=== PATIENT | male | born 2000 | race Caucasian/White ===

== ENCOUNTER 2023-06-04 18:44 | Emergency (ER) | payer OTHER, MEDICAID, SELFPAY ==
[2023-06-04 18:54] VITALS: BP 126/64; PULSE 75; RESP 14; TEMP 36.6; O2SAT 100
[2023-06-04 20:40] VITALS: BP 105/59; PULSE 88; RESP 14; TEMP 36.7; O2SAT 100
--- NOTE | 2023-06-04 22:58 | PC.NURSE ---
no answer for room 2220.
--- NOTE | 2023-06-04 22:58 | PC.NURSE ---
no answer for VS at 7622
--- NOTE | 2023-06-04 23:16 | PC.NURSE ---
no answer x3 at this time.
== END 2023-06-04 22:20 | disposition left against medical advice (07) ==
LOC: ANHED 23:26
DX: M79.659 Pain in unspecified thigh (principal)
CPT/HCPCS: 99199

== ENCOUNTER 2023-06-13 20:20 | Emergency (ER) | payer OTHER, MEDICAID, SELFPAY ==
--- NOTE | ~2023-06-13 | XR_ITS ---
Clinical Indication: Shortness of breath, cough PA and lateral views of the chest: Comparison: 05/10/2018 Findings: The lungs are clear, without evidence of focal consolidation or pleural effusion. Cardiome diastinal silhouette is within normal limits. Bones and soft tissues are unremarkable. Impression: Normal chest. Reviewed, dictated and finalized at location . Impression: Normal chest.
[2023-06-13 20:46] VITALS: BP 128/68; PULSE 70; RESP 15; TEMP 36.4; O2SAT 100
[2023-06-13 23:44] VITALS: BP 94/50; PULSE 70; RESP 14; TEMP 36.4; O2SAT 100
[2023-06-14 01:11] VITALS: O2SAT 99
[2023-06-14 03:58] LABS: Basophils Absolute Auto 0.1 K/mm3 (0.0-0.1); Basophils Percent Auto 0.7 % (0.2-1.2); Eosinophils Absolute Auto 0.3 K/mm3 (0-0.3); Hematocrit 41.5 % (42.0-52.0); Hemoglobin 13.4 g/dL (14.0-18.0); Immature Granulocyte Absolute 0.01 K/mm3 (0.00-0.031); Immature Granulocyte Percent A 0.1 % (0-0.5); Lymphocytes Absolute Auto 2.45 K/mm3 (0.9-3.2); Lymphocytes Percent Auto 29.7 % (18.3-44.2); Mean Corpuscular HGB Conc 32.3 g/dl (32-36); Mean Corpuscular Hemoglobin 28.8 pg (26-34); Mean Corpuscular Volume 89.1 fl (80-100); Mean Platelet Volume 9.6 fl (7.4-10.4); Monocytes Absolute Auto 0.7 K/mm3 (0.1-0.6); Monocytes Percent Auto 7.9 % (2.6-8.5); Neutrophils Absolute Auto 4.8 K/mm3 (1.3-6.7); Neutrophils Percent Auto 57.6 % (45.5-73.1); Platelet Count Result 215 k/mm3 (150-375); Red Blood Count 4.66 M/mm3 (4.6-6.20); Red Cell Distribution Width 13.2 % (11.5-14.5); White Blood Count 8.3 K/mm3 (4.5-10.0)
[2023-06-14 04:13] LABS: Anion Gap 4 mmol/L (8-16); Blood Urea Nitrogen 9 mg/dL (9-20); Calcium 8.8 mg/dL (8.4-10.2); Carbon Dioxide 30 mmol/L (22-30); Chloride 104 mmol/L (98-107); Estimated CRCL calculation 126 ml/min; Estimated Glomerular Filt Rate > 60; Glucose 91 mg/dL (65-110); Potassium 3.6 mmol/L (3.4-5.0); Sodium 138 mmol/L (137-145)
[2023-06-14 04:31] LABS: D Dimer < 0.27 ug/mL (<0.48)
--- NOTE | 2023-06-14 04:50 | ED.GENADULT ---
HPI - General Adult General Chief complaint: Shortness of Breath/Dyspnea Stated complaint: cough with SOB, blood in mucas Time Seen by Provider: 06/14/23 03:29 History of Present Illness HPI narrative: This is a 23-year-old male presenting ED with chief complaint of cough x1 month. Patient says that over the last week you started to have streaks of blood in his mucus. He does have some chest discomfort when he coughs but no true chest pain. Denies fever chills nausea vomiting or diarrhea. No history of lower extremity edema, recent surgeries cancers or blood clots. Related Data Allergies Allergy/AdvReac Type Severity Reaction Status Date / Time No Known Allergies Allergy Mild Verified 06/14/23 01:09 [facility] Past Medical History Medical History (Updated 06/14/23 @ 04:53 by Maldonado Harvey MD) Anxiety Panic attack Surgical History Surgical History No significant past surgical history Social History Social History Alcohol intake: never Substance use: current Substance use type: marijuana Other substance usage details: Daily marijuana use Gender identity (if verbalized by the patient): Male Exam Narrative: APPEARANCE: No apparent distress. malodorous Head: atraumatic. EYES: EOMI, NOSE: Atraumatic NECK: Trachea midline RESPIRATORY: No increased rate of breathing , clear to auscultation CARDIOVASCULAR: RRR, no peripheral edema ABDOMINAL: Non-distended MUSCULOSKELETAl: No obvious deformities NEURO: Alert. Moving 4/4 extremities SKIN:: Warm, dry. Normal color PSYCHIATRIC: Normal affect Course Vital Signs Vital signs: Vital Signs Temperature 97.6 F 06/13/23 20:46 Pulse Rate 70 06/13/23 20:46 Respiratory Rate 15 06/13/23 20:46 Blood Pressure 128/68 06/13/23 20:46 Pulse Oximetry 100 06/13/23 20:46 Oxygen Delivery Room Air 06/13/23 20:46 Temperature 97.5 F L 06/13/23 23:44 Pulse Rate 70 06/13/23 23:44 Respiratory Rate 14 06/13/23 23:44 Blood Pressure 94/50 L 06/13/23 23:44 Pulse Oximetry 99 06/14/23 01:11 Oxygen Delivery Room Air 06/14/23 01:11 Medical Decision Making MDM Narrative Medical decision making narrative: -Course: 23-year-old male presenting with cough x1 month with streaks of blood in his mucus. Lab work including a D-dimer were negative. Chest x-ray unremarkable. Trace of blood likely from bronchitis. Patient be discharged with primary care follow-up. -DDX includes but is not limited to: Pulmonary embolism, pneumonia, bronchitis, viral syndrome -Co-morbidities complicating care: anxiety -Social determinants of health: works at [employer] -Independent interpretation of studies: laboratory studies normal. D-dimer undetectable. Chest x-ray unremarkable. -Shared decision making / Disposition: Discharged Vital Signs Vital Signs: Vital Signs Temperature 97.6 F 06/13/23 20:46 Pulse Rate 70 06/13/23 20:46 Respiratory Rate 15 06/13/23 20:46 Blood Pressure 128/68 06/13/23 20:46 Pulse Oximetry 100 06/13/23 20:46 Oxygen Delivery Room Air 06/13/23 20:46 Temperature 97.5 F L 06/13/23 23:44 Pulse Rate 70 06/13/23 23:44 Respiratory Rate 14 06/13/23 23:44 Blood Pressure 94/50 L 06/13/23 23:44 Pulse Oximetry 99 06/14/23 01:11 Oxygen Delivery Room Air 06/14/23 01:11 Lab Data 06/14/23 03:53 06/14/23 03:53 Labs: Lab Results 06/14/23 Range/Units 03:53 WBC 8.3 (4.5-10.0) K/mm3 RBC 4.66 (4.6-6.20) M/mm3 Hgb 13.4 L (14.0-18.0) g/dL Hct 41.5 L (42.0-52.0) % MCV 89.1 (80-100) fl MCH 28.8 (26-34) pg MCHC 32.3 (32-36) g/dl RDW 13.2 (11.5-14.5) % Plt Count 215 (150-375) k/mm3 MPV 9.6 (7.4-10.4) fl Immature Gran % (Auto) 0.1 (0-0.5) % Neut % (Auto) 57.6 (45.5-73.1) % Lymph % (Auto) 29.7 (18.3-44.2) % [place] % (Auto) 7.9
[2023-06-14 05:13] VITALS: BP 113/67; PULSE 71; RESP 16; O2SAT 100
== END 2023-06-14 05:15 | disposition home or self-care (01) ==
PROVIDERS: Emergency Provider Emergency Medicine; PCP Emergency Medicine
DX: J40 Bronchitis, not specified as acute or chronic (principal); F41.0 Panic disorder [episodic paroxysmal anxiety]
CPT/HCPCS: 36415; 71046; 80048; 85025; 85380; 99283

== ENCOUNTER 2024-01-23 19:06 | Emergency (ER) | payer OTHER, SELFPAY ==
[2024-01-23 19:16] VITALS: BP 106/64; PULSE 83; RESP 18; TEMP 36.8; O2SAT 100
--- NOTE | 2024-01-23 19:24 | ED.NAVMDI ---
HPI - Nausea/Vomiting/Diarrhea General Chief complaint: Nausea/Vomiting/Diarrhea Stated complaint: Nausea and diarrhea Time Seen by Provider: 01/23/24 19:24 Source: patient, RN notes reviewed and old records reviewed Mode of arrival: ambulatory Limitations: no limitations History of Present Illness HPI Narrative: 24-year-old male presents to the [facility] with nausea and diarrhea since this morning. No treatment prior to arrival. States he able to drink fluids. Denies any significant abdominal pain. No pain with palpation. States he only vomited 1 time this morning when he woke up. States he called in sick to work this morning and needs a work note. Related Data Allergies Allergy/AdvReac Type Severity Reaction Status Date / Time No Known Allergies Allergy Mild Verified 01/23/24 19:27 Review of Systems Review of Systems: All systems reviewed & are unremarkable except as noted in HPI and below Constitutional: Constitutional: Reports no additional constitutional complaints Eyes: Eyes: Reports no additional eye complaints ENT: Reports system reviewed and no additional complaints, except as documented Cardiovascular: Cardiovascular: Reports no additional cardiovascular complaints, Denies chest pain and Denies dyspnea Respiratory: Respiratory: Reports no additional respiratory complaints, Denies chest congestion, Denies cough and Denies dyspnea Gastrointestinal: Gastrointestinal: Reports as per HPI, Denies abdominal pain, Reports diarrhea, Reports nausea and Reports vomiting Musculoskeletal: Musculoskeletal: Reports no additional musculoskeletal complaints Integumentary/Breasts: Skin/Breast: Reports system reviewed and no additional complaints, except as docu Neurologic: Reports system reviewed and no additional complaints, except as documented Psychiatric: Psychiatric: Reports no additional psychiatric complaints Allergic/Immunologic: Allergic/Immunologic: Reports no additional allergic/immunologic complaints [facility] Past Medical History Medical History Anxiety Panic attack Surgical History Surgical History No significant past surgical history Social History Social History Alcohol intake: never Substance use: current Substance use type: marijuana Other substance usage details: Daily marijuana use Gender identity (if verbalized by the patient): Male Comments At the time of my signature, I reviewed and agree with the nursing past medical, surgical, social, and family history. There is no relevant family history pertinent to the patient complaint. Exam Const: General: cooperative, healthy appearing, comfortable, no acute distress, well developed, alert and well nourished Nutritional Appearance: well nourished Orientation/consciousness: patient oriented x3 Limitations: no limitations HENMT: Head: normal to inspection Ears: hearing grossly normal bilaterally, external ears normal, TM's normal bilaterally, EAC's normal, mastoids normal and no periauricular adenopathy Face/Nose/Sinus: Normal external nose present, Normal nares present, Normal nasal mucous membranes and turbinates present, normal facial exam and face symmetric Face and sinus: normal facial exam and face symmetric Mouth: Yes Normal oral and palatal mucosa present, Yes lip normal and Yes moist mucous membranes Throat: posterior oropharynx normal, uvula midline and no uvular edema Eyes: General: appearance normal, both eyes and all related structures Alignment and Position: alignment normal Periorbital: periorbital findings normal Pupils: Equal, round and reactive pupils present EOM: EOMs intact bilaterally Neck: Neck: normal visual inspection, full ROM, no lymphadenopathy and no meningeal signs Chest: Chest palpation & inspection: normal inspection of the chest Resp: Eff
== END 2024-01-23 19:38 | disposition home or self-care (01) ==
PROVIDERS: Emergency Provider Nurse Practitioner; Referring Provider Family Medicine
DX: K52.9 Noninfective gastroenteritis and colitis, unspecified (principal); F12.90 Cannabis use, unspecified, uncomplicated
CPT/HCPCS: 99213; G0463

== ENCOUNTER 2024-03-18 19:44 | Emergency (ER) | payer OTHER, SELFPAY ==
--- NOTE | 2024-03-18 19:46 | ED.NAVMDI ---
HPI - Nausea/Vomiting/Diarrhea General Chief complaint: Nausea/Vomiting/Diarrhea Stated complaint: nausea,diarrhea Time Seen by Provider: 03/18/24 19:59 Source: patient and RN notes reviewed Mode of arrival: ambulatory Limitations: no limitations History of Present Illness HPI Narrative: 24-year-old male presents with concern for 1 and half day history of nausea and diarrhea. Reports he had 3 episodes of diarrhea today. He denies vomiting. He denies chills, body aches, fever, upper respiratory symptoms. He has not taken any medications for his symptoms. MD elicited complaint: nausea and diarrhea Related Data Allergies Allergy/AdvReac Type Severity Reaction Status Date / Time No Known Allergies Allergy Mild Verified 03/18/24 19:45 Review of Systems Review of Systems: CONSTITUTIONAL: Denies malaise, chills, sweats, or fever. ENT: Denies rhinorrhea, congestion, sinus pain, otalgia or sore throat. CARDIOVASCULAR: Denies chest pain, palpitations, or edema. RESPIRATORY: Denies cough or dyspnea. GASTROINTESTINAL: Denies abdominal pain, vomiting, bloody, or mucous stools. Reports nausea and diarrhea GENITOURINARY: Denies dysuria or hematuria. MUSCULOSKELETAL: Denies myalgia. NEUROLOGIC: Denies headache. All systems reviewed & are unremarkable except as noted in HPI and below PMFSH Past Medical History Medical History (Updated 03/18/24 @ 20:08 by Dilcia Marcum NP) Anxiety Panic attack Surgical History Surgical History No significant past surgical history Social History Social History Alcohol intake: never Substance use: current Substance use type: marijuana Other substance usage details: Daily marijuana use Gender identity (if verbalized by the patient): Male Comments At time of signature, agree with nursing past medical, surgical, social and family history. There is no relevant family history pertinent to the presenting complaint Exam Narrative: GENERAL: Well-appearing, well-nourished, and in no acute distress. HEAD: Normocephalic, atraumatic. EYES: PERRLA, conjunctivae clear, and EOMI. ENT: Nares clear, turbinates pink, no rhinorrhea or epistaxis. Mucous membranes moist. Oropharynx without edema, erythema, or lesions. Tonsils not enlarged and without exudate. NECK: Supple. No lymphadenopathy CHEST: Speaks in full sentences. No respiratory distress. HEART: Regular rate and rhythm. ABDOMEN: Soft, flat, nondistended, nontender. No guarding, rebound tenderness, or rigidity. No pulsatile masses. Bowel sounds present in all four quadrants. No organomegaly. SKIN: Warm, dry, no rash. NEURO: Alert and oriented x3. PSYCH: Normal mood and affect Course Course Emergency Course: Patient is aware of diagnosis, understands and agrees to treatment plan. Anticipatory guidance given. Patient agrees to follow-up as directed and is aware of reasons to seek care at the emergency department. Portions of this record may have been created with voice recognition software Level of Care: Express Care Visit Vital Signs Vital signs: Reviewed. MDM - Nausea/Vomiting/Diarrhea MDM Narrative Medical decision making narrative: No evidence of pancreatitis, AAA, cholecystitis, choledocholithiasis, cholangitis, mesenteric ischemia, small bowel obstruction, diverticulitis, colitis, appendicitis, or pelvic etiology such as testicular torsion, TOA, or ectopic . Patient has no history of peptic ulcer, H. pylori, chronic aspirin NSAID or corticosteroid use, chronic alcohol use, no history of inflammatory bowel disease, no history of active abdominal infection or malignancy. Patient has no history of hernia or intra-abdominal surgeries, patient denies absence of flatus, constipation, melena, hematemesis. Patient denies post-prandial pain. No pain-out of proportion. Exam findings show no acute concerns or ch
[2024-03-18 19:56] VITALS: BP 116/68; PULSE 100; RESP 16; TEMP 36.4; O2SAT 100
[2024-03-18 20:09] LABS: EDINFLUASCREEN Negative; EDINFLUBSCREEN Negative
== END 2024-03-18 20:11 | disposition home or self-care (01) ==
PROVIDERS: Emergency Provider Nurse Practitioner
DX: R19.7 Diarrhea, unspecified (principal); Z20.822 Contact with and (suspected) exposure to COVID-19; F12.90 Cannabis use, unspecified, uncomplicated
CPT/HCPCS: 87426; 87804; 99213; G0463

== ENCOUNTER 2024-04-27 23:44 | Emergency (ER) | payer OTHER, SELFPAY ==
--- NOTE | ~2024-04-27 | XR_ITS ---
EXAMINATION: XR chest 1V portable DATE: 04/28/2024 00:34 INDICATION: Chest pain. TECHNIQUE: A single frontal view of the chest was obtained on 2 radiographs. COMPARISON: Chest 2 views 06/14/2023 FINDINGS: There is no pneumonia, pleural effusion, or pneumothorax. The heart size is normal. IMPRESSION: 1. No acute cardiopulmonary disease. Reviewed, dictated and finalized at location A.
--- NOTE | 2024-04-27 23:45 | ECG_ITS ---
Test Date: 2024-04-27 23:52:29 Measurements Intervals [place] Rate: 68 P: 61 IN: 154 QRS: 63 QRSD: 90 T: 64 QT: 359 QTc: 384 Interpretive Statements SINUS RHYTHM NORMAL ECG No previous ECG available for comparison Electronically Signed On 04-28-2024 10:58:23 CDT by Ronald Moeller M.D.
[2024-04-27 23:48] VITALS: BP 114/96; PULSE 133; RESP 20; TEMP 36.3; O2SAT 99
[2024-04-28 00:18] LABS: Basophils Absolute Auto 0.1 K/mm3 (0.0-0.1); Basophils Percent Auto 0.8 % (0.2-1.2); Eosinophils Absolute Auto 0.2 K/mm3 (0-0.3); Eosinophils Percent Auto 2.8 % (0-4.4); Hematocrit 43.2 % (42.0-52.0); Immature Granulocyte Absolute 0.01 K/mm3 (0.00-0.031); Immature Granulocyte Percent A 0.2 % (0-0.5); Lymphocytes Absolute Auto 1.79 K/mm3 (0.9-3.2); Lymphocytes Percent Auto 28.3 % (18.3-44.2); Mean Corpuscular HGB Conc 32.4 g/dl (32-36); Mean Corpuscular Hemoglobin 28.9 pg (26-34); Mean Corpuscular Volume 89.3 fl (80-100); Mean Platelet Volume 9.9 fl (7.4-10.4); Monocytes Absolute Auto 0.5 K/mm3 (0.1-0.6); Monocytes Percent Auto 7.3 % (2.6-8.5); Neutrophils Absolute Auto 3.8 K/mm3 (1.3-6.7); Neutrophils Percent Auto 60.6 % (45.5-73.1); Platelet Count Result 240 k/mm3 (150-375); Red Blood Count 4.84 M/mm3 (4.6-6.20); Red Cell Distribution Width 13.1 % (11.5-14.5); White Blood Count 6.3 K/mm3 (4.5-10.0)
--- NOTE | 2024-04-28 00:21 | ED.GENADULT ---
HPI - General Adult General Chief complaint: Chest Pain Stated complaint: Chest pain Time Seen by Provider: 04/28/24 00:00 History of Present Illness HPI narrative: This is a 24-year-old male coming to the ED with chest pain and difficulty breathing. Patient has a anxiety and panic attacks. Patient developed a sharp left-sided chest pain was associated with palpitations and shortness of breath. It self-resolved in 15 minutes. Patient says he has been having these episodes for years. He has at least once a month. He has been seen at multiple emergency departments and told that everything looks okay and likely related to anxiety. Patient has no other symptoms at this time such as fevers chills productive cough nausea vomiting, exertional component, radiation, lower extremity edema, abdominal pain. Related Data Home Medications Medication Instructions Recorded Confirmed No Home Medications 04/27/24 04/27/24 Allergies Allergy/AdvReac Type Severity Reaction Status Date / Time No Known Allergies Allergy Mild Verified 04/27/24 23:51 [facility] Past Medical History Medical History (Updated 04/28/24 @ 00:30 by Maldonado Harvey MD) Anxiety Panic attack Surgical History Surgical History No significant past surgical history Social History Social History Alcohol intake: never Substance use: current Substance use type: marijuana Other substance usage details: Daily marijuana use Gender identity (if verbalized by the patient): Male Exam Narrative: APPEARANCE: No apparent distress. Resting calmly in bed Head: atraumatic. EYES: EOMI, NOSE: Atraumatic NECK: Trachea midline RESPIRATORY: No increased rate of breathing clear to auscultation CARDIOVASCULAR: RRR, no peripheral edema ABDOMINAL: Non-distended soft nontender MUSCULOSKELETAl: No obvious deformities NEURO: Alert. Moving 4/4 extremities SKIN:: Warm, dry. Normal color PSYCHIATRIC: Normal affect Course Vital Signs Vital signs: Vital Signs Temperature 97.4 F L 04/27/24 23:48 Pulse Rate 133 H 04/27/24 23:48 Respiratory Rate 20 04/27/24 23:48 Blood Pressure 114/96 H 04/27/24 23:48 Pulse Oximetry 99 04/27/24 23:48 Oxygen Delivery Room Air 04/27/24 23:48 Temperature 97.4 F L 04/27/24 23:48 Pulse Rate 133 H 04/27/24 23:48 Respiratory Rate 20 04/27/24 23:48 Blood Pressure 114/96 H 04/27/24 23:48 Pulse Oximetry 99 04/27/24 23:48 Oxygen Delivery Room Air 04/27/24 23:48 Medical Decision Making MDM Narrative Medical decision making narrative: -Course: 24-year-old male presenting with chest pain and difficulty breathing. Patient states that he has had episodes like this every month for several years. The problems all resolved without intervention and he is currently asymptomatic in the ED. Chest x-ray and EKG were unremarkable. Patient will be discharged. Patient is requesting a work note. -DDX includes but is not limited to: Anxiety, panic attack, pleurisy, ACS, PE, pneumothorax -Co-morbidities complicating care: Anxiety with panic attack Independent interpretation of studies: Independent EKG interpretation: Rhythm [sinus], Rate [68], [place] -[normal], [place] -[normal], QRS [narrow], QTC [normal], T waves -[negative for concerning inversions], ST Segments - [Negative for concerning elevations] Final interpretations: [Normal Sinus Rhythm] -Shared decision making / Disposition: Discharged Vital Signs Vital Signs: Vital Signs Temperature 97.4 F L 04/27/24 23:48 Pulse Rate 133 H 04/27/24 23:48 Respiratory Rate 04/27/24 23:48 Blood Pressure 114/96 H 04/27/24 23:48 Pulse Oximetry 99 04/27/24 23:48 Oxygen Delivery Room Air 04/27/24 23:48 Temperature 97.4 F L 04/27/24 23:48 Pulse Rate 133 H 04/27/24 23:48 Respiratory Rate 20 04/27/24 23:48 Blood Pressure 114/96
[2024-04-28 00:22] VITALS: PULSE 70; O2SAT 98
[2024-04-28 00:23] VITALS: BP 138/87; PULSE 67; RESP 15; O2SAT 99
--- NOTE | 2024-04-28 00:25 | PC.NURSE ---
No ASA dose required - VORB per Dr. Harvey.
[2024-04-28 00:27] LABS: Alanine Aminotransferase 11 U/L (6-50); Alkaline Phosphatase 61 U/L (38-126); Anion Gap 10 mmol/L (4-12); Aspartate Amino Transferase 22 U/L (17-59); Bilirubin,Total 0.8 mg/dL (0.2-1.3); Blood Urea Nitrogen 7 mg/dL (9-20); Calcium 9.4 mg/dL (8.4-10.2); Carbon Dioxide 29 mmol/L (22-30); Chloride 102 mmol/L (98-107); Estimated CRCL calculation 115 ml/min; Estimated Glomerular Filt Rate > 60; Glucose 95 mg/dL (65-110); Lipase 65 U/L (23-300); Sodium 141 mmol/L (137-145)
[2024-04-28 00:35] LABS: Prothrombin Time 13.6 Seconds (11.1-14.7)
[2024-04-28 00:36] LABS: Partial Thromboplastin Time 27.2 Seconds (22.3-36.8)
[2024-04-28 00:38] LABS: Troponin I < 0.012 ng/mL (0.000-0.034)
== END 2024-04-28 00:40 | disposition home or self-care (01) ==
PROVIDERS: Emergency Provider Emergency Medicine
DX: F41.0 Panic disorder [episodic paroxysmal anxiety] (principal)
CPT/HCPCS: 36415; 71045; 80053; 83690; 84484; 85025; 85610; 85730; 93005; 99284